=== PATIENT | female | born 1985 | race Caucasian/White ===

== ENCOUNTER 2018-02-06 12:05 | Emergency (ER) | payer MEDICAID ==
[~2018-02-06] VITALS: Ht 142.2 cm; Wt 45.0 kg
[~2018-02-06 12:05] MED LIST: ALKA SELTZER; PREN-88 PO; PREN1TAB19 PO
[2018-02-06] MEDS ORDERED: IBUPROFEN 600MG TABLET PO ONE (15:00)
[2018-02-06] MEDS ORDERED: ACETAMINOPHEN 325MG TABLET PO ONE (15:00)
[2018-02-06 15:56] VITALS: BP 121/45
== END 2018-02-06 21:00 | disposition home or self-care (01) ==
LOC: ER 20:44
DX: L03.115 Cellulitis of right lower limb (principal); L03.312 Cellulitis of back [any part except buttock and flank]; Z98.890 Other specified postprocedural states; Z79.899 Other long term (current) drug therapy; W57.XXXA Bitten or stung by nonvenomous insect and other nonvenomous arthropods, initial encounter; Y93.89 Activity, other specified; Y92.89 Other specified places as the place of occurrence of the external cause; Y99.8 Other external cause status
CPT/HCPCS: 99283

== ENCOUNTER 2018-02-08 09:57 | Emergency (ER) | payer MEDICAID ==
[~2018-02-08] VITALS: Ht 142.2 cm; Wt 45.0 kg
[2018-02-08] MEDS ORDERED: BACITRACIN ZINC OINT UDPKT TOP ONE (10:45)
[2018-02-08] MEDS ORDERED: ACETAMINOPHEN WITH CODEINE 300/30MG TABLET PO ONE (10:45)
[2018-02-08 11:42] VITALS: BP 112/65
== END 2018-02-08 11:43 | disposition home or self-care (01) ==
LOC: ER 09:57
DX: L02.415 Cutaneous abscess of right lower limb (principal); I10 Essential (primary) hypertension; Z98.890 Other specified postprocedural states; Z79.899 Other long term (current) drug therapy
CPT/HCPCS: 10060; 99283

== ENCOUNTER 2018-02-10 09:00 | Emergency (ER) | payer MEDICAID ==
[~2018-02-10] VITALS: Ht 160 cm; Wt 75.0 kg
[2018-02-10] MEDS ORDERED: MORPHINE SULFATE 10 MG/ML CPJ IV ONE (11:45)
[2018-02-10 12:43] VITALS: BP 109/65
== END 2018-02-10 12:49 | disposition home or self-care (01) ==
LOC: ER 09:00
DX: Z48.00 Encounter for change or removal of nonsurgical wound dressing (principal)
CPT/HCPCS: 81025; 99282; J2270

== ENCOUNTER 2018-02-10 19:30 | Emergency (ER) | payer MEDICAID ==
[~2018-02-10] VITALS: Ht 142.2 cm; Wt 45.0 kg
[2018-02-11 01:05] VITALS: BP 119/63
== END 2018-02-11 01:08 | disposition home or self-care (01) ==
LOC: ER 19:30
DX: R11.2 Nausea with vomiting, unspecified (principal); Z48.00 Encounter for change or removal of nonsurgical wound dressing
CPT/HCPCS: 99283

== ENCOUNTER 2018-02-12 09:33 | Emergency (ER) | payer MEDICAID ==
[~2018-02-12] VITALS: Ht 142.2 cm; Wt 46.0 kg
[2018-02-12] MEDS ORDERED: BACITRACIN ZINC OINT UDPKT TOP ONE (10:45)
[2018-02-12] MEDS ORDERED: CEFTRIAXONE SODIUM 1 G/VIAL IM ONE (10:45)
[2018-02-12] MEDS ORDERED: LIDOCAINE HCL 1% 20ML VIAL (Pyxis) INJ INFIL ONE (10:45)
[2018-02-12 11:08] VITALS: BP 117/76
== END 2018-02-12 11:14 | disposition home or self-care (01) ==
LOC: ER 09:33
DX: L02.415 Cutaneous abscess of right lower limb (principal); Z98.890 Other specified postprocedural states
CPT/HCPCS: 96372; 99283; J0696; J3490

== ENCOUNTER 2018-02-16 09:58 | Emergency (ER) | payer MEDICAID ==
[~2018-02-16] VITALS: Ht 142.2 cm; Wt 42.0 kg
[2018-02-16 10:05] VITALS: BP 111/35
[2018-02-16] MEDS ORDERED: LIDOCAINE 1%/EPI 1:100,000 10 ML VIAL IJ ONE (10:30)
[2018-02-16] MEDS ORDERED: ACETAMINOPHEN 325MG TABLET PO ONE (10:30)
[2018-02-16] MEDS ORDERED: LIDOCAINE HCL/EPINEPHRINE 1%-EPI 1:100,000 20 ML VIAL INFIL ONE (10:45)
== END 2018-02-16 11:23 | disposition home or self-care (01) ==
LOC: ER 10:37
DX: L02.415 Cutaneous abscess of right lower limb (principal); Z98.890 Other specified postprocedural states; W57.XXXA Bitten or stung by nonvenomous insect and other nonvenomous arthropods, initial encounter; Y93.89 Activity, other specified; Y92.59 Other trade areas as the place of occurrence of the external cause; Y99.8 Other external cause status
CPT/HCPCS: 10060; 81025; 99283; J3490

== ENCOUNTER 2018-02-19 09:46 | Emergency (ER) | payer MEDICAID ==
[~2018-02-19] VITALS: Ht 142.2 cm; Wt 46.0 kg
[2018-02-19 09:53] VITALS: BP 103/63
== END 2018-02-19 11:30 | disposition home or self-care (01) ==
LOC: ER 09:52
DX: L02.415 Cutaneous abscess of right lower limb (principal); Z98.890 Other specified postprocedural states
CPT/HCPCS: 99281; 99282; 99283

== ENCOUNTER 2018-02-22 08:19 | Emergency (ER) | payer MEDICAID ==
[~2018-02-22] VITALS: Ht 142.2 cm; Wt 46.0 kg
[2018-02-22 08:33] VITALS: BP 105/57
== END 2018-02-22 09:49 | disposition home or self-care (01) ==
LOC: ER 09:22
DX: Z48.00 Encounter for change or removal of nonsurgical wound dressing (principal); R03.0 Elevated blood-pressure reading, without diagnosis of hypertension
CPT/HCPCS: 99281; 99282

== ENCOUNTER 2018-12-20 21:18 | Emergency (ER) | payer MEDICAID ==
[~2018-12-20] VITALS: Ht 142.2 cm; Wt 52.0 kg
[2018-12-20] MEDS ORDERED: NITROFURANTOIN 100MG M/M CAPSULE PO ONE (22:15)
[2018-12-20] MEDS ORDERED: PHENAZOPYRIDINE HCL 100MG TABLET PO ONE (22:15)
[2018-12-20 22:17] LABS: CLARITY URINE CLOUDY (CLEAR); COLOR URINE YELLOW (YELLOW); KETONES URINE TRACE (NEGATIVE); LEUKOCYTE ESTERASE URINE 3+ (NEGATIVE); NITRITE URINE NEGATIVE (NEGATIVE); OCCULT BLOOD URINE NEGATIVE (NEGATIVE); PROTEIN URINE NEGATIVE (NEGATIVE); SPECIFIC GRAVITY URINE 1.027 (1.005-1.030)
[2018-12-20 22:41] VITALS: BP 125/70
== END 2018-12-20 22:45 | disposition home or self-care (01) ==
LOC: ER 21:18
DX: N39.0 Urinary tract infection, site not specified (principal); Z98.890 Other specified postprocedural states
CPT/HCPCS: 81003; 81025; 87077; 87186; 99283

== ENCOUNTER 2019-03-20 18:05 | Emergency (ER) | payer MEDICAID ==
[~2019-03-20] VITALS: Ht 142.2 cm; Wt 49.0 kg
[2019-03-20 18:30] VITALS: BP 100/66
== END 2019-03-20 23:39 | disposition left against medical advice (07) ==
LOC: ER 18:13
DX: R50.9 Fever, unspecified (principal); Z53.21 Procedure and treatment not carried out due to patient leaving prior to being seen by health care provider

== ENCOUNTER 2019-11-13 18:15 | Emergency (ER) | payer MEDICAID ==
[~2019-11-13] VITALS: Ht 142.2 cm; Wt 52.0 kg
[2019-11-13] MEDS ORDERED: ONDANSETRON 4MG ODT PO ONE (19:00)
[2019-11-13] MEDS ORDERED: ACETAMINOPHEN 650MG/20.3ML UDC PO ONE (19:00)
[2019-11-13 19:48] LABS: CLARITY URINE CLEAR (CLEAR); COLOR URINE YELLOW (YELLOW); KETONES URINE TRACE (NEGATIVE); LEUKOCYTE ESTERASE URINE NEGATIVE (NEGATIVE); NITRITE URINE NEGATIVE (NEGATIVE); OCCULT BLOOD URINE NEGATIVE (NEGATIVE); PROTEIN URINE NEGATIVE (NEGATIVE); SPECIFIC GRAVITY URINE 1.023 (1.005-1.030)
[2019-11-13 20:09] LABS: CHLORIDE 94 mEq/L (98-107)
[2019-11-13 20:48] LABS: HCG SCREEN NEGATIVE
[2019-11-13] MEDS ORDERED: SODIUM CHLORIDE 0.9% 1,000 ML IV ONE (21:15)
[2019-11-13] MEDS ORDERED: AZITHROMYCIN 500 MG TABLET PO ONE (22:00)
[2019-11-13] MEDS ORDERED: CEFTRIAXONE SODIUM 250 MG/VIAL IM ONE (22:00)
[2019-11-13 22:09] LABS: HEMATOCRIT 35.3 % (36.0-48.0); HEMOGLOBIN 11.1 g/dL (12.0-16.0); MEAN CORPUSCULAR HEMOGLOBIN 20.6 pg (28.0-32.0); MEAN CORPUSCULAR VOLUME 65.4 fL (81.0-99.0); PLATELET 342 x1000/uL (130-400); RED BLOOD CELL COUNT 5.39 mill/uL (4.2-5.4); RED CELL DISTRIBUTION WIDTH 17.4 % (11.6-14.6)
[2019-11-13 23:25] VITALS: BP 108/55
== END 2019-11-13 23:28 | disposition home or self-care (01) ==
LOC: ER 18:15
DX: E87.1 Hypo-osmolality and hyponatremia (principal); Z79.899 Other long term (current) drug therapy
CPT/HCPCS: 36415; 80053; 81003; 84703; 85027; 96360; 96372; 99283; J0696; Q0162

== ENCOUNTER 2021-09-27 20:17 | Inpatient (IN) | payer MEDICAID ==
[~2021-09-27] VITALS: Ht 152.4 cm; Wt 41.0 kg
[~2021-09-27 20:17] MED LIST changes: +LEVO500T90 MT
[2021-09-27] MEDS ORDERED: ONDANSETRON HCL 4MG/2ML INJ IV STA (20:34)
[2021-09-27] MEDS ORDERED: SODIUM CHLORIDE 0.9% 1,000 ML IV ONE ×2 (20:45→22:15)
[2021-09-27 21:15] LABS: BASOPHILS % 0.2 % (0.0-2.0); EOSINOPHILS % 0.5 % (0.0-5.0); HEMATOCRIT. 38.8 % (36.0-48.0); HEMOGLOBIN. 12.7 g/dL (12.0-16.0); LYMPHOCYTES % 13.5 % (20.0-50.0); MEAN CORPUSCULAR HEMOGLOBIN 25.4 pg (28.0-32.0); MEAN CORPUSCULAR VOLUME 77.8 fL (81.0-99.0); MEAN PLATELET VOLUME 8.9 fl (7.4-10.4); MONOCYTES % 5.6 % (2.0-8.0); NEUTROPHILS % 80.2 % (40.0-76.0); PLATELET 332 x1000/uL (130-400); RED BLOOD CELL COUNT 4.99 mill/uL (4.2-5.4); RED CELL DISTRIBUTION WIDTH 17.5 % (11.6-14.6)
[2021-09-27 21:22] LABS: CHLORIDE 92 mEq/L (98-107); HCG SCREEN NEGATIVE
[2021-09-27 21:34] LABS: ETHANOL BLOOD < 10 mg/dL
[2021-09-27] MEDS ORDERED: DEXTROSE 50% WATER 50ML SYRINGE IV ONE (22:15)
[2021-09-27] MEDS ORDERED: PIPERACILLIN/TAZOBACTAM 3.375GM/50ML PREMIX IV ONE (22:15)
[2021-09-27] MEDS ORDERED: PIPERACILLIN/TAZ 3.375G PREMIX 50 ML IV ONE (22:30)
[2021-09-28 00:25] LABS: *AMPHETAMINES SCREEN URINE NEGATIVE (NEGATIVE); *BARBITURATES SCREEN URINE NEGATIVE (NEGATIVE); *BENZODIAZEPINES SCREEN URINE NEGATIVE (NEGATIVE); *COCAINE SCREEN URINE NEGATIVE (NEGATIVE); CANNABINOID URINE SCREEN NEGATIVE (NEGATIVE); METHADONE URINE SCREEN NEGATIVE (NEGATIVE); OPIATES URINE SCREEN NEGATIVE (NEGATIVE); PHENCYCLIDINE URINE SCREEN NEGATIVE (NEGATIVE)
[2021-09-28 01:35] LABS: CLARITY URINE CLEAR (CLEAR); COLOR URINE YELLOW (YELLOW); KETONES URINE 1+ (NEGATIVE); LEUKOCYTE ESTERASE URINE NEGATIVE (NEGATIVE); NITRITE URINE NEGATIVE (NEGATIVE); OCCULT BLOOD URINE NEGATIVE (NEGATIVE); PROTEIN URINE NEGATIVE (NEGATIVE); SPECIFIC GRAVITY URINE 1.014 (1.005-1.030); UROBILINOGEN URINE 0.2 E.U./dL (0.2-1.0)
[2021-09-28] MEDS ORDERED: DEXTROSE 50% WATER 50ML SYRINGE IV NR (06:30)
[2021-09-28] MEDS ORDERED: DEXT 10% WATER 1,000 ML IV ONE (06:30)
[2021-09-28] MEDS ORDERED: DEXTROSE 50% WATER 50ML SYRINGE IV ONE (06:35)
[2021-09-28] MEDS ORDERED: ONDANSETRON HCL 4MG/2ML INJ IV PRN (10:15)
[2021-09-28] MEDS ORDERED: ACETAMINOPHEN 325MG TABLET PO PRN (10:15)
[2021-09-28] MEDS ORDERED: POTASSIUM CHLORIDE 20MEQ TABLET SR PO SCH (11:00)
[2021-09-28 13:30] VITALS: BP_SYST 87; BP_DIAS 43; BP_DIAS 53
[2021-09-28] MEDS ORDERED: FLUD0.1T PO (15:08)
[2021-09-28] MEDS ORDERED: CHOL200026 (15:08)
[2021-09-28] MEDS ORDERED: HYDR10TA MT (15:08)
[2021-09-28] MEDS ORDERED: *PATIENT'S OWN MEDICATION STORAGE XX SCH (15:45)
[2021-09-28 16:00] VITALS: BP 88/49
[2021-09-28 20:00] VITALS: BP 90/39
[2021-09-28] MEDS ORDERED: HYDROCORTISONE 10MG TABLET PO SCH (21:00)
[2021-09-29] VITALS: BP 85/41
[2021-09-29 04:00] VITALS: BP 80/38
[2021-09-29 07:42] LABS: BASOPHILS % 0.7 % (0.0-2.0); EOSINOPHILS % 0.4 % (0.0-5.0); HEMATOCRIT. 31.2 % (36.0-48.0); HEMOGLOBIN. 10.5 g/dL (12.0-16.0); MEAN CORPUSCULAR HEMOGLOBIN 25.8 pg (28.0-32.0); MEAN CORPUSCULAR VOLUME 76.3 fL (81.0-99.0); MEAN PLATELET VOLUME 9.1 fl (7.4-10.4); MONOCYTES % 7.3 % (2.0-8.0); NEUTROPHILS % 71.6 % (40.0-76.0); PLATELET 207 x1000/uL (130-400); RED BLOOD CELL COUNT 4.09 mill/uL (4.2-5.4); RED CELL DISTRIBUTION WIDTH 17.6 % (11.6-14.6)
[2021-09-29 07:44] VITALS: BP 93/57
[2021-09-29 07:58] LABS: CHLORIDE 98 mEq/L (98-107)
[2021-09-29] MEDS ORDERED: HYDROCORTISONE 10MG TABLET PO SCH (09:00)
[2021-09-29] MEDS ORDERED: CHOLECALCIFEROL (D3) 1000 UNIT TABLET PO SCH (09:00)
[2021-09-29] MEDS ORDERED: FLUDROCORTISONE ACETATE 0.1MG TABLET PO SCH (09:00)
[2021-09-29 12:00] VITALS: BP 89/36
[2021-09-29 13:12] VITALS: BP_SYST 89; BP_SYST 92; BP_DIAS 36; BP_DIAS 45
[2021-09-29 15:46] VITALS: BP 90/40
== END 2021-09-29 19:00 | disposition home or self-care (01) | DRG 422 ==
LOC: ER 20:17 → 6WST 09-28 03:06 → EDBEDREQ 09-28 03:11 → EDBEDREQDT 09-28 03:11 → EDBEDREQTM 09-28 03:11 → ENRESERV 09-28 12:26
PROVIDERS: ADMIT Internal Medicine; ATTEND Internal Medicine
DX: E86.0 Dehydration (principal); R64 Cachexia; I95.9 Hypotension, unspecified; R65.10 Systemic inflammatory response syndrome (SIRS) of non-infectious origin without acute organ dysfunction; E87.1 Hypo-osmolality and hyponatremia; E16.2 Hypoglycemia, unspecified; M19.90 Unspecified osteoarthritis, unspecified site; E87.6 Hypokalemia; Z87.440 Personal history of urinary (tract) infections; Z98.891 History of uterine scar from previous surgery; Z99.3 Dependence on wheelchair; Z68.1 Body mass index [BMI] 19.9 or less, adult
CPT/HCPCS: 36415; 71045; 80048; 80053; 80305; 80320; 81003; 82533; 82962; 83036; 83605; 83880; 84145; 84484; 84703; 85025; 93005; 99291; J2405; J2543; J7030; G0480

== ENCOUNTER 2021-11-15 09:22 | Inpatient (IN) | payer MEDICAID ==
[~2021-11-15] VITALS: Ht 139.7 cm; Wt 36.7 kg
[~2021-11-15 09:22] MED LIST changes: +CHOL200026; +FLUD0.1T PO; +HYDR10TA MT; -LEVO500T90 MT
[2021-11-15] MEDS ORDERED: ONDANSETRON HCL 4MG/2ML INJ IV ONE (10:00)
[2021-11-15] MEDS ORDERED: SODIUM CHLORIDE 0.9% 1000ML BAG (SEPSIS BOLUS) IV ONE (10:00)
[2021-11-15 10:20] LABS: BG BASE EXCESS -8.7 mmol/L (-2.0-2.0); BG CARBOXYHEMOGLOBIN 0.3 % (0.5-1.5); BG DEOXYHEMOGLOBIN 2.7 % (0.0-5.0); BG FRACTION INSPIRED OXYGEN 21; BG HCO3 ACT 16.2 mmol/L (22.0-26.0); BG METHEMOGLOBIN 0.1 % (0.0-1.5); BG OXYGEN SATURATION 97.3 % (92.0-98.5); BG OXYHEMOGLOBIN 96.9 % (94.0-97.0); BG PCO2 31.9 mmHg (35.0-45.0); BG PH 7.324 (7.350-7.450); BG PO2 109.1 mmHg (75.0-100.0); BG SAMPLE SITE RIGHT RADIAL; BG TOTAL HEMOGLOBIN 11.7 g/dL (12.0-18.0); BG VENT MODE ROOM AIR
[2021-11-15 10:38] LABS: BASOPHILS % 0.5 % (0.0-2.0); EOSINOPHILS % 0.6 % (0.0-5.0); LYMPHOCYTES % 19.7 % (20.0-50.0); MEAN CORPUSCULAR HEMOGLOBIN 26.1 pg (28.0-32.0); MEAN CORPUSCULAR VOLUME 78.3 fL (81.0-99.0); MEAN PLATELET VOLUME 8.7 fl (7.4-10.4); NEUTROPHILS % 73.2 % (40.0-76.0); PLATELET 245 x1000/uL (130-400); RED BLOOD CELL COUNT 4.59 mill/uL (4.2-5.4); RED CELL DISTRIBUTION WIDTH 17.9 % (11.6-14.6)
[2021-11-15 10:45] LABS: CHLORIDE 96 mEq/L (98-107)
[2021-11-15 10:49] LABS: INR 1.1; PROTHROMBIN TIME 11.6 sec (9.6-11.0)
[2021-11-15 10:57] LABS: ETHANOL BLOOD < 10 mg/dL
[2021-11-15] MEDS ORDERED: CEFTRIAXONE 1 G PREMIX 50 ML IV ONE (11:00)
[2021-11-15 11:12] LABS: CLARITY URINE CLOUDY (CLEAR); COLOR URINE YELLOW (YELLOW); KETONES URINE 1+ (NEGATIVE); LEUKOCYTE ESTERASE URINE 3+ (NEGATIVE); NITRITE URINE POSITIVE (NEGATIVE); OCCULT BLOOD URINE 1+ (NEGATIVE); PH URINE 5.5 (4.5-8.0); PROTEIN URINE TRACE (NEGATIVE); SPECIFIC GRAVITY URINE 1.015 (1.005-1.030); UROBILINOGEN URINE 0.2 E.U./dL (0.2-1.0)
[2021-11-15] MEDS: DEXT 5%/0.45% NACL KCL 20MEQ/L 1,000 ML IV ONE ×2 (11:30→15:47)
[2021-11-15 11:36] LABS: *AMPHETAMINES SCREEN URINE NEGATIVE (NEGATIVE); *BARBITURATES SCREEN URINE NEGATIVE (NEGATIVE); *BENZODIAZEPINES SCREEN URINE NEGATIVE (NEGATIVE); *COCAINE SCREEN URINE NEGATIVE (NEGATIVE); CANNABINOID URINE SCREEN NEGATIVE (NEGATIVE); METHADONE URINE SCREEN NEGATIVE (NEGATIVE); OPIATES URINE SCREEN NEGATIVE (NEGATIVE); PHENCYCLIDINE URINE SCREEN NEGATIVE (NEGATIVE)
[2021-11-15] MEDS ORDERED: CLONIDINE 0.1MG TABLET PO PRN (13:15)
[2021-11-15] MEDS ORDERED: IPRATROPIUM/ALBUTEROL 0.5-3(2.5)MG/3ML NEB HHN PRN (13:15)
[2021-11-15] MEDS ORDERED: DIPHENHYDRAMINE 50MG/ML VIAL IV PRN (13:15)
[2021-11-15] MEDS ORDERED: ONDANSETRON HCL 4MG/2ML INJ IV PRN (13:15)
[2021-11-15] MEDS: SODIUM CHLORIDE 0.9% 1,000 ML IV SCH (13:15)
[2021-11-15] MEDS ORDERED: CEFTRIAXONE 1 G PREMIX 50 ML IV SCH (13:15)
[2021-11-15] MEDS ORDERED: MORPHINE SULFATE 2 MG/ML CPJ (NOT FOR IM USE) IV PRN (13:15)
[2021-11-15 16:00] VITALS: BP 88/46
[2021-11-15 19:30] VITALS: BP 89/44
[2021-11-15 20:00] VITALS: BP 89/44
[2021-11-16] VITALS: BP 87/45
[2021-11-16] MEDS: ACETAMINOPHEN 325MG TABLET PO PRN (03:12)
[2021-11-16 04:00] VITALS: BP 89/41
[2021-11-16] MEDS ORDERED: CEFTRIAXONE 1 G PREMIX 50 ML IV SCH (06:45)
[2021-11-16 07:00] LABS: BASOPHILS % 0.3 % (0.0-2.0); HEMATOCRIT. 27.1 % (36.0-48.0); LYMPHOCYTES % 30.6 % (20.0-50.0); MEAN CORPUSCULAR HEMOGLOBIN 26.7 pg (28.0-32.0); MEAN CORPUSCULAR VOLUME 80.2 fL (81.0-99.0); MEAN PLATELET VOLUME 8.4 fl (7.4-10.4); MONOCYTES % 8.6 % (2.0-8.0); NEUTROPHILS % 59.5 % (40.0-76.0); PLATELET 185 x1000/uL (130-400); RED BLOOD CELL COUNT 3.38 mill/uL (4.2-5.4); RED CELL DISTRIBUTION WIDTH 17.8 % (11.6-14.6)
[2021-11-16 07:06] LABS: CHLORIDE 102 mEq/L (98-107)
[2021-11-16 08:00] VITALS: BP 77/44
[2021-11-16 12:00] VITALS: BP 91/48
[2021-11-16] MEDS: CEFTRIAXONE 1,000 MG in DEXTROSE 5% WATER 50 ML IV SCH (14:04)
[2021-11-16] MEDS: SODIUM CHLORIDE 0.9% 1,000 ML IV SCH (14:04)
[2021-11-16 16:00] VITALS: BP 78/35
[2021-11-16 20:00] VITALS: BP 97/29
[2021-11-17] VITALS: BP 91/31
[2021-11-17 04:00] VITALS: BP 89/38
[2021-11-17 08:00] VITALS: BP_SYST 153; BP_SYST 76; BP_DIAS 104; BP_DIAS 43
[2021-11-17 08:15] LABS: BASOPHILS % 0.5 % (0.0-2.0); EOSINOPHILS % 2.1 % (0.0-5.0); HEMATOCRIT. 27.7 % (36.0-48.0); HEMOGLOBIN. 9.3 g/dL (12.0-16.0); LYMPHOCYTES % 35.5 % (20.0-50.0); MEAN CORPUSCULAR HEMOGLOBIN 26.4 pg (28.0-32.0); MEAN CORPUSCULAR VOLUME 78.4 fL (81.0-99.0); MEAN PLATELET VOLUME 8.7 fl (7.4-10.4); MONOCYTES % 10.7 % (2.0-8.0); NEUTROPHILS % 51.2 % (40.0-76.0); PLATELET 151 x1000/uL (130-400); RED BLOOD CELL COUNT 3.53 mill/uL (4.2-5.4); RED CELL DISTRIBUTION WIDTH 18.2 % (11.6-14.6)
[2021-11-17 08:26] LABS: CHLORIDE 106 mEq/L (98-107)
[2021-11-17] MEDS: ACETAMINOPHEN 325MG TABLET PO PRN (09:31)
[2021-11-17 12:00] VITALS: BP 82/45
[2021-11-17] MEDS: CEFTRIAXONE 1,000 MG in DEXTROSE 5% WATER 50 ML IV SCH (13:33)
[2021-11-17 16:00] VITALS: BP 104/45
[2021-11-17 20:56] VITALS: BP 84/46
[2021-11-17] MEDS: SODIUM CHLORIDE 0.9% 1,000 ML IV SCH (22:46)
[2021-11-18] VITALS: BP 80/43
[2021-11-18] MEDS: ACETAMINOPHEN 325MG TABLET PO PRN (03:53)
[2021-11-18 04:25] VITALS: BP 83/47
[2021-11-18 07:49] LABS: BASOPHILS % 0.5 % (0.0-2.0); EOSINOPHILS % 2.6 % (0.0-5.0); HEMATOCRIT. 28.4 % (36.0-48.0); HEMOGLOBIN. 9.8 g/dL (12.0-16.0); LYMPHOCYTES % 39.6 % (20.0-50.0); MEAN CORPUSCULAR HEMOGLOBIN 26.9 pg (28.0-32.0); MEAN PLATELET VOLUME 9.1 fl (7.4-10.4); MONOCYTES % 7.9 % (2.0-8.0); NEUTROPHILS % 49.4 % (40.0-76.0); PLATELET 159 x1000/uL (130-400); RED BLOOD CELL COUNT 3.64 mill/uL (4.2-5.4)
[2021-11-18 08:10] VITALS: BP 85/45
[2021-11-18 09:02] LABS: CHLORIDE 103 mEq/L (98-107)
[2021-11-18 12:00] VITALS: BP 106/59
[2021-11-18] MEDS: CEFTRIAXONE 1,000 MG in DEXTROSE 5% WATER 50 ML IV SCH (14:06)
[2021-11-18 16:00] VITALS: BP 81/41
[2021-11-18 20:00] VITALS: BP 80/46
[2021-11-19] VITALS: BP 77/45
[2021-11-19 04:00] VITALS: BP 85/43
[2021-11-19] MEDS: SODIUM CHLORIDE 0.9% 1,000 ML IV SCH ×2 (06:03→13:15)
[2021-11-19 08:00] VITALS: BP 83/41
[2021-11-19 08:12] LABS: BASOPHILS % 0.7 % (0.0-2.0); HEMATOCRIT. 30.7 % (36.0-48.0); HEMOGLOBIN. 10.5 g/dL (12.0-16.0); LYMPHOCYTES % 42.5 % (20.0-50.0); MEAN CORPUSCULAR HEMOGLOBIN 26.8 pg (28.0-32.0); MEAN PLATELET VOLUME 9.4 fl (7.4-10.4); MONOCYTES % 8.1 % (2.0-8.0); NEUTROPHILS % 44.7 % (40.0-76.0); PLATELET 167 x1000/uL (130-400); RED BLOOD CELL COUNT 3.93 mill/uL (4.2-5.4); RED CELL DISTRIBUTION WIDTH 18.2 % (11.6-14.6)
[2021-11-19 08:44] LABS: CHLORIDE 101 mEq/L (98-107)
[2021-11-19 12:00] VITALS: BP 89/42
[2021-11-19 15:56] VITALS: BP 88/45
[2021-11-19 20:00] VITALS: BP 87/47
[2021-11-19] MEDS: ACETAMINOPHEN 325MG TABLET PO PRN (23:58)
[2021-11-20] VITALS: BP 87/50
[2021-11-20 04:00] VITALS: BP 94/43
[2021-11-20 07:39] VITALS: BP 90/42
[2021-11-20 09:35] VITALS: BP 92/40
[2021-11-20 11:53] VITALS: BP 92/44
[2021-11-20] MEDS ORDERED: NITR100C MT (12:39)
[2021-11-20] MEDS: CEFTRIAXONE 1,000 MG in DEXTROSE 5% WATER 50 ML IV SCH (14:07)
[2021-11-20] MEDS: SODIUM CHLORIDE 0.9% 1,000 ML IV SCH (14:09)
[2021-11-20 16:00] VITALS: BP 90/42
== END 2021-11-20 16:20 | disposition home or self-care (01) | DRG 463 ==
LOC: ER 09:22 → 6WST 12:06 → EDBEDREQ 12:09 → EDBEDREQSVC 14:07 → ENRESERV 14:49
PROVIDERS: ADMIT Internal Medicine; ATTEND Internal Medicine
DX: N39.0 Urinary tract infection, site not specified (principal); E87.1 Hypo-osmolality and hyponatremia; I95.9 Hypotension, unspecified; I10 Essential (primary) hypertension; M19.90 Unspecified osteoarthritis, unspecified site; K21.9 Gastro-esophageal reflux disease without esophagitis; Z79.899 Other long term (current) drug therapy; Z99.3 Dependence on wheelchair; Z98.891 History of uterine scar from previous surgery
CPT/HCPCS: 36415; 36600; 71045; 80048; 80053; 80305; 80320; 81003; 82375; 82805; 83605; 83880; 84145; 84484; 85025; 86850; 86900; 87077; 87186; 93005; 93970; 97162; 99291; J0696; J1200; J2405; J7030; J7060; G0480